=== PATIENT | female | born 1990 | race African-American/Black ===

== ENCOUNTER 2017-01-04 12:04 | Emergency (ER) | payer OTHER, MEDICAID ==
[~2017-01-04] VITALS: Ht 172.7 cm; Wt 148.0 kg
[2017-01-04 12:12] VITALS: BP 162/99
[2017-01-04] MEDS ORDERED: ALBU18HF2 IH (12:17)
[2017-01-04] MEDS ORDERED: IBUPROFEN 800MG TABLET PO ONE (13:00)
== END 2017-01-04 13:25 | disposition home or self-care (01) ==
LOC: ER 12:05
DX: H66.92 Otitis media, unspecified, left ear (principal); J45.909 Unspecified asthma, uncomplicated; J02.9 Acute pharyngitis, unspecified
CPT/HCPCS: 99283